=== PATIENT | male | born 1945 | race Caucasian/White ===

== ENCOUNTER 2020-10-05 16:21 | Emergency (ER) | payer OTHER ==
[~2020-10-05] VITALS: Ht 170.2 cm; Wt 99.8 kg
[~2020-10-05 16:21] MED LIST: CYCL10 PO; Coumadin5 MG PO; GLIP10 PO; LISI20 PO; METF500 PO; METO50ER PO; Norco 10-325 T1 EACH PO; PIOG15 PO; SIMV40 PO
== END 2020-10-05 18:45 | disposition home or self-care (01) ==
LOC: ER 16:21
DX: S20.212A Contusion of left front wall of thorax, initial encounter (principal); J44.9 Chronic obstructive pulmonary disease, unspecified; E11.9 Type 2 diabetes mellitus without complications; I10 Essential (primary) hypertension; Z79.899 Other long term (current) drug therapy; Z79.01 Long term (current) use of anticoagulants; Z88.8 Allergy status to other drugs, medicaments and biological substances; V49.40XA Driver injured in collision with unspecified motor vehicles in traffic accident, initial encounter; Y92.410 Unspecified street and highway as the place of occurrence of the external cause
CPT/HCPCS: 71046; 96372; 99283-25; J1885

== ENCOUNTER 2023-11-18 16:43 | Inpatient (IN) | payer OTHER ==
[~2023-11-18] VITALS: Ht 170.2 cm; Wt 93.0 kg
[~2023-11-18 16:43] MED LIST changes: +MECL12.5 PO
[2023-11-18 19:02] LABS: BASOPHILS ABSOLUTE AUTO 0.07 K/mm3 (0.00-0.23); BASOPHILS PERCENT AUTO 1 % (0-2); EOSINOPHILS ABSOLUTE AUTO 0.17 K/mm3 (0.00-0.68); EOSINOPHILS PERCENT AUTO 2 % (0-6); Hematocrit 45.9 % (37.0-53.0); Hemoglobin 15.3 g/dL (13.5-17.5); IMMATURE GRAN ABSOLUTE AUTO 0.03 K/mm3 (0.00-0.10); IMMATURE GRAN PERCENT AUTO 0 % (0-1); LYMPHOCYTES ABSOLUTE AUTO 1.06 K/mm3 (0.84-5.20); LYMPHOCYTES PERCENT AUTO 13 % (21-46); MONOCYTES ABSOLUTE AUTO 0.85 K/mm3 (0.16-1.47); MONOCYTES PERCENT AUTO 10 % (4-13); Mean Corpuscular HGB 30.6 pg (26.0-34.0); Mean Corpuscular HGB Conc 33.3 g/dL (31.5-36.5); Mean Corpuscular Volume 92 fL (80-100); Mean Platelet Volume 8.5 fL (9.1-12.4); NEUTROPHILS PERCENT AUTO 73 % (41-73); Platelet Count 190 K/mm3 (150-400); RDW Coefficient Variation 12.1 % (11.7-14.2); RDW Standard Deviation 41.1 fL (35.1-46.3); White Blood Cell Count 8.18 K/mm3 (4.00-11.30)
[2023-11-18] MEDS ORDERED: MELO7.5 PO (19:16)
[2023-11-18] MEDS ORDERED: JARDIANCE25 MG PO (19:16)
[2023-11-18] MEDS ORDERED: EFFIENT10 MG PO (19:16)
[2023-11-18] MEDS ORDERED: FLUT1DIS5 INH (19:16)
[2023-11-18 19:17] LABS: International Normalized Ratio 0.99; Prothrombin Time Results 10.6 Sec (9.7-11.5)
[2023-11-18] MEDS ORDERED: ZOLOFT25 MG PO (19:17)
[2023-11-18] MEDS ORDERED: Crestor40 MG PO (19:17)
[2023-11-18] MEDS ORDERED: TIOT18 INH (19:18)
[2023-11-18] MEDS ORDERED: TRAZ50 PO (19:18)
[2023-11-18 19:25] LABS: Albumin, Blood 3.8 g/dL (3.4-5.0); Albumin/Globulin Ratio 1.3 (0.8-1.8); Bilirubin, Total 0.6 mg/dL (0.1-1.0); Bun/Creatinine Ratio 20.2 (12.0-20.0); Calcium, Blood 8.9 mg/dL (8.5-10.1); Creatinine, Blood 0.89 mg/dL (0.60-1.20); Globulin, Blood 2.9 g/dL (2.2-4.0); Total Protein, Blood 6.7 g/dL (6.4-8.2)
[2023-11-18] MEDS ORDERED: OxyCODONE HCL 5 MG TAB PO ONE (19:30)
[2023-11-18] MEDS ORDERED: Diazepam 5 MG / ML 2ML SYR IV ONE (20:45)
[2023-11-18] MEDS ORDERED: Morphine Sulfate 4 MG/1 ML Injection IV ONE (21:25)
[2023-11-18] MEDS ORDERED: Acetaminophen 325 MG TABLET PO PRN (22:55)
[2023-11-18] MEDS ORDERED: Cyclobenzaprine HCl 10 MG Tab PO PRN (23:00)
[2023-11-18] MEDS ORDERED: TraZODone HCl 50 MG Tab PO SCH (23:00)
[2023-11-18] MEDS ORDERED: Tiotropium Bromide 2.5 MCG/ACT MIST INHAL (10 ACT/4 GM) INH SCH (23:25)
[2023-11-18] MEDS ORDERED: Mometasone/Formoterol MDI 200/5 mcg 13 GM INH SCH (23:25)
[2023-11-19 00:30] VITALS: BP 136/71
[2023-11-19] MEDS ORDERED: PRED1 PO (00:50)
[2023-11-19] MEDS ORDERED: MULVITA (00:51)
[2023-11-19] MEDS ORDERED: MELATONIN10 M1 PO (00:53)
[2023-11-19] MEDS ORDERED: DICLOFENAC SOD100 GM TOP (00:55)
[2023-11-19] MEDS ORDERED: TAMS.4ER PO (01:37)
[2023-11-19] MEDS ORDERED: FentaNYL Citrate 50 MCG/ML 2 ML Injection IV PRN (01:45)
[2023-11-19] MEDS ORDERED: Tamsulosin HCl 0.4 MG Cap PO SCH ×2 (02:10→21:00)
[2023-11-19 04:34] LABS: BASOPHILS ABSOLUTE AUTO 0.07 K/mm3 (0.00-0.23); BASOPHILS PERCENT AUTO 1 % (0-2); EOSINOPHILS PERCENT AUTO 3 % (0-6); Hematocrit 42.1 % (37.0-53.0); Hemoglobin 14.3 g/dL (13.5-17.5); IMMATURE GRAN ABSOLUTE AUTO 0.04 K/mm3 (0.00-0.10); IMMATURE GRAN PERCENT AUTO 1 % (0-1); LYMPHOCYTES ABSOLUTE AUTO 1.47 K/mm3 (0.84-5.20); LYMPHOCYTES PERCENT AUTO 20 % (21-46); MONOCYTES ABSOLUTE AUTO 0.82 K/mm3 (0.16-1.47); MONOCYTES PERCENT AUTO 11 % (4-13); Mean Corpuscular HGB 31.2 pg (26.0-34.0); Mean Corpuscular Volume 92 fL (80-100); Mean Platelet Volume 8.5 fL (9.1-12.4); NEUTROPHILS ABSOLUTE AUTO 4.83 K/mm3 (1.96-9.15); NEUTROPHILS PERCENT AUTO 65 % (41-73); Platelet Count 178 K/mm3 (150-400); RDW Coefficient Variation 12.1 % (11.7-14.2); RDW Standard Deviation 40.2 fL (35.1-46.3); Red Blood Cell Count 4.59 M/mm3 (4.30-5.90); White Blood Cell Count 7.43 K/mm3 (4.00-11.30)
[2023-11-19 04:37] VITALS: BP 129/63
[2023-11-19 05:12] LABS: Albumin, Blood 3.3 g/dL (3.4-5.0); Albumin/Globulin Ratio 1.3 (0.8-1.8); Bilirubin, Total 0.5 mg/dL (0.1-1.0); Calcium, Blood 8.6 mg/dL (8.5-10.1); Creatinine, Blood 0.58 mg/dL (0.60-1.20); Globulin, Blood 2.6 g/dL (2.2-4.0); Potassium, Blood 3.6 mmol/L (3.5-5.5); Total Protein, Blood 5.9 g/dL (6.4-8.2)
[2023-11-19 07:06] VITALS: BP 127/54
[2023-11-19] MEDS ORDERED: Meloxicam 7.5 MG Tab PO SCH (09:00)
[2023-11-19] MEDS ORDERED: Empagliflozin 25 MG TAB PO SCH (09:00)
[2023-11-19] MEDS ORDERED: Metoprolol Succinate 25 MG TABCR PO SCH (09:00)
[2023-11-19] MEDS ORDERED: LevETIRAcetam 500 MG Tab PO SCH (09:00)
[2023-11-19] MEDS ORDERED: Lisinopril 10 MG Tab PO SCH (09:00)
[2023-11-19] MEDS ORDERED: Rosuvastatin Calcium 10 MG Tab PO SCH (09:00)
[2023-11-19] MEDS ORDERED: Sertraline HCl 50 MG Tab PO SCH (09:00)
[2023-11-19 15:11] VITALS: BP 115/65
[2023-11-19] MEDS ORDERED: Insulin Human Lispro 100 Units/ML 3ML Syringe SC SCH (16:30)
--- NOTE | 2023-11-19 18:11 | NUR ---
SHIFT SUMMARY PT A&OX4, VSS, AMB W/ 1P ASSIST, TOLERATING PO, VOIDING, AND PAIN MANAGED PER EMAR. PT TO HAVE CT AT 1999. NO OTHER ACUTE CHANGES THIS SHIFT. CALL LIGHT WITHIN REACH AND PT ABLE TO MAKE NEEDS KNOWN.
[2023-11-19 19:16] VITALS: BP 129/74
[2023-11-20 03:58] VITALS: BP 107/55
[2023-11-20 07:06] VITALS: BP 128/72
--- NOTE | 2023-11-20 07:41 | NUR ---
END OF SHIFT SUMMARY NO NEURO CHANGES SINCE SUFFERING FROM A SUBDURAL HEMATOMA. SENT PT FOR REPEAT HEAD CT AT 1999, NO SIGNIFICANT CHANGES. NO NEURO CHANGES NOTED OVERNIGHT. PT HAD A SHOWER. HE IS STILL COMPLAINING OF SIGNIFICANT RIB AND BACK PAIN AND BENEFITS FROM TYLENOL, FLEXERIL AND FENTANYL.
--- NOTE | 2023-11-20 09:52 | NUR ---
MORNING ASSESSMENT DONE AND PATIENTS TOOK MORNING MEDS PER EMAR WITHOUT A PROBLEM. ASKED FOR SOMETHING STRONGER FOR HIS BACK PAIN AND MEDICATED PER EMAR AT THE APPRORIATE TIME. ASKED PT ABOUT BOWEL CARE SINCE HE STATED IT HAD BEEN SEVERAL DAYS SINCE HE WENT. HAS CALL LIGHT WITHIN REACH AND BED AT THE LOWEST SETTING, TALKING WITH HIS AT BEDSIDE.
[2023-11-20] MEDS ORDERED: MIRALAX17 GM PO (11:13)
[2023-11-20] MEDS ORDERED: LEVE500 PO (11:13)
--- NOTE | 2023-11-20 12:12 | NUR ---
DISCHARGE NOTE: PT DISCHARGED VIA WHEELCHAIR WITH ALL PERSONAL BELONGINGS AND DISCHARGE PACKET. WENT OVER DISCHARGE INSTURCTIONS WITH HIM AND AND THEY ARE AWARE OF THE NEW MEDICATIONS, WHEN TO FOLLOW UP WITH PCP & WHAT SYMPTOMS TO BE ON THE LOOK OUT FOR. IV TAKEN OUT AND TELE REMOVED. LEFT LEG BRACE WAS APPLIED.
== END 2023-11-20 12:10 | disposition home or self-care (01) | DRG 83 ==
LOC: ER 16:43 → MEDS 16:44 → ENPENDDIS 11-20 10:56 → MEDS 11-20 12:10
PROVIDERS: Family Medicine; Student in an Organized Health Care Education/Training Program; ADMIT Internal Medicine
DX: S06.5XAA Traumatic subdural hemorrhage with loss of consciousness status unknown, initial encounter (principal); I69.354 Hemiplegia and hemiparesis following cerebral infarction affecting left non-dominant side; J44.9 Chronic obstructive pulmonary disease, unspecified; I10 Essential (primary) hypertension; E78.5 Hyperlipidemia, unspecified; I25.10 Atherosclerotic heart disease of native coronary artery without angina pectoris; Z95.1 Presence of aortocoronary bypass graft; N40.0 Benign prostatic hyperplasia without lower urinary tract symptoms; F32.A Depression, unspecified; I48.91 Unspecified atrial fibrillation; M54.9 Dorsalgia, unspecified; G89.29 Other chronic pain; I87.2 Venous insufficiency (chronic) (peripheral); W22.8XXA Striking against or struck by other objects, initial encounter; M19.90 Unspecified osteoarthritis, unspecified site; E11.65 Type 2 diabetes mellitus with hyperglycemia; Z88.1 Allergy status to other antibiotic agents; Z79.899 Other long term (current) drug therapy; Z79.891 Long term (current) use of opiate analgesic; Z79.84 Long term (current) use of oral hypoglycemic drugs; Z79.01 Long term (current) use of anticoagulants; Z87.891 Personal history of nicotine dependence; Z88.0 Allergy status to penicillin; Z88.8 Allergy status to other drugs, medicaments and biological substances
CPT/HCPCS: 36415; 70450; 70460; 71250; 72070; 72100; 72125; 80053; 82947; 84484; 85025; 85610; 85730; 86850; 86900; 86901; 93005; 93010; 94640; 94664; 94760; 96374-59; 96375; 96375-59; 96376; 99285-25; A9270; G0378; J2270; J3010; J3360; Q9967

== ENCOUNTER 2024-01-30 16:59 | Emergency (ER) | payer SELFPAY ==
[~2024-01-30] VITALS: Ht 170.2 cm; Wt 93.0 kg
[~2024-01-30 16:59] MED LIST changes: +Crestor40 MG PO; +DICLOFENAC SOD100 GM TOP; +EFFIENT10 MG PO; +FLUT1DIS5 INH; +JARDIANCE25 MG PO; +LEVE500 PO; +MELATONIN10 M1 PO; +MELO7.5 PO; +MIRALAX17 GM PO; +MULVITA; +PRED1 PO; +TAMS.4ER PO; +TIOT18 INH; +TRAZ50 PO; +ZOLOFT25 MG PO
[2024-01-30 17:17] VITALS: BP 142/65
== END 2024-01-30 20:34 | disposition home or self-care (01) ==
LOC: ER 16:59
DX: S01.81XA Laceration without foreign body of other part of head, initial encounter (principal); J44.1 Chronic obstructive pulmonary disease with (acute) exacerbation; E11.9 Type 2 diabetes mellitus without complications; I10 Essential (primary) hypertension; E78.5 Hyperlipidemia, unspecified; W01.0XXA Fall on same level from slipping, tripping and stumbling without subsequent striking against object, initial encounter; Z86.73 Personal history of transient ischemic attack (TIA), and cerebral infarction without residual deficits; Z79.51 Long term (current) use of inhaled steroids; Z79.84 Long term (current) use of oral hypoglycemic drugs; Z79.899 Other long term (current) drug therapy; Z88.0 Allergy status to penicillin; Z88.8 Allergy status to other drugs, medicaments and biological substances
CPT/HCPCS: 12013; 70450; 99284-25